=== PATIENT | female | born 1990 | race Caucasian/White ===

== ENCOUNTER 2021-09-08 00:11 | Emergency (ER) | payer OTHER, MEDICAID ==
[~2021-09-08] VITALS: Ht 152.4 cm; Wt 68.0 kg
[2021-09-08 00:16] VITALS: BP 133/77
[2021-09-08] MEDS ORDERED: DIPHENHYDRAMINE 25MG CAPSULE PO ONE (00:45)
[2021-09-08] MEDS ORDERED: KETOROLAC 60MG/2ML VIAL IM ONE (00:45)
== END 2021-09-08 02:11 | disposition home or self-care (01) ==
LOC: ER 00:11
DX: R51.9 Headache, unspecified (principal)
CPT/HCPCS: 81025; 96372; 99283; J1885; Q0163